=== PATIENT | female | born 1990 | race Asian ===

== ENCOUNTER 2018-05-10 01:17 | Emergency (ER) | payer BC ==
[~2018-05-10] VITALS: Ht 172.7 cm; Wt 66.7 kg
[2018-05-10 01:51] VITALS: BP_SYST 116
[2018-05-10 07:24] VITALS: BP_SYST 119
== END 2018-05-10 07:24 | disposition home or self-care (01) ==
LOC: SED 01:17
DX: L50.9 Urticaria, unspecified (principal)
CPT/HCPCS: 99282